=== PATIENT | female | born 1965 | race African-American/Black ===

== ENCOUNTER 2017-12-03 23:58 | Emergency (ER) | payer OTHER ==
[~2017-12-03] VITALS: Ht 167.6 cm; Wt 89.8 kg
[~2017-12-03 23:58] MED LIST: KENALOG 0.1% CR15 GM APPLIC; NKM; PREDNISONE20 MG ORAL
[2017-12-04] MEDS ORDERED: LISINOPRIL20 MG ORAL (00:08)
[2017-12-04] MEDS ORDERED: ATORVASTATIN CA20 MG ORAL (00:08)
[2017-12-04 00:45] VITALS: BP 148/88
[2017-12-04 00:59] LABS: APPEARANCE,URINE CLEAR; BILIRUBIN, URINE NEGATIVE (NEGATIVE); COLOR,URINE PALE YELLOW; GLUCOSE, URINE (UA) NEGATIVE (NEGATIVE); KETONES,URINE NEGATIVE (NEGATIVE); LEUKOCYTE ESTERASE ,URINE 1+ (NEGATIVE); NITRITE,URINE NEGATIVE (NEGATIVE); PH,URINE 6.5 (4.5-8.0); PROTEIN,URINE NEGATIVE (NEGATIVE); UROBILINOGEN,URINE 1 MG/DL (0.0-1.0)
[2017-12-04] MEDS ORDERED: BACTRIM DS TAB1 EAC1 ORAL (01:22)
--- NOTE | 2017-12-04 01:22 | Emergency Room Report ---
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 She "holds" urine. She c/o feeling some discomfort and is concerned may have UTI. No fever, no abd pain no n/v. Has had occasional UTIs in the past. Allergies: Coded Allergies: No Known Allergies (Unverified , 05/23/15) Nursing Documentation-PMH Hx Cardiac Problems: Yes - HIGH CHOLESTEROL Hx Hypertension: Yes Review of Systems Constitutional: Denies: fever Eye: Denies: acuity changes Respiratory: Denies: cough, shortness of breath Cardiovascular: Denies: chest pain Gastrointestinal: Denies: nausea, vomiting Skin: Denies: rash Neurological: Denies: headache Physical Exam Vital Signs Date Time Temp Pulse Resp B/P (MAP) Pulse Ox O2 Delivery O2 Flow Rate FiO2 12/04/17 00:00 97.8 67 18 152/90 98 Room Air 97.9 General Appearance: well appearing, no apparent distress Head: normocephalic, atraumatic ENT: hearing grossly normal, normal voice Neck: full range of motion, supple Respiratory: no respiratory distress, speaking full sentences Musculoskeletal: no calf tenderness Neurologic: alert, normal gait Psychiatric: mood/affect normal Skin: no rash Medical Decision Making Diagnostic Impression: Primary Impression: Dysuria Additional Impression: UTI (urinary tract infection) ER Course no real UTI; I am giving Rx. for Bactrim for patient to have on prn basis i also informed of her product called "travelJohn" Last Vital Signs Date Time Temp Pulse Resp B/P (MAP) Pulse Ox O2 Delivery O2 Flow Rate FiO2 12/04/17 00:00 97.8 67 18 152/90 98 Room Air 97.9 Disposition: HOME, SELF-CARE Condition: Stable Scripts Trimethoprim/Sulfamethoxazole 160/800* (BACTRIM DS TABLET*) 1 Each Tablet 1 TAB ORAL Q12H, #14 TAB 0 Refills Prov: Nazario Nickerson M.D. 12/04/17 Referrals: [facility]ERR[facility] (PCP) Patient Instructions: Urinary Tract Infection Nazario Nickerson M.D. Dec 04, 2017 01:22
[2017-12-04 01:25] VITALS: BP 148/88
== END 2017-12-04 01:25 | disposition home or self-care (01) ==
LOC: EMR 12-04 00:19
DX: N39.0 Urinary tract infection, site not specified (principal); I10 Essential (primary) hypertension; E78.00 Pure hypercholesterolemia, unspecified
CPT/HCPCS: 81001; 99283

== ENCOUNTER 2018-01-25 18:40 | Emergency (ER) | payer OTHER ==
[~2018-01-25] VITALS: Ht 167.6 cm; Wt 81.6 kg
[~2018-01-25 18:40] MED LIST changes: +ATORVASTATIN CA20 MG ORAL; +BACTRIM DS TAB1 EAC1 ORAL; +LISINOPRIL20 MG ORAL
--- NOTE | 2018-01-25 19:08 | Emergency Room Report ---
History of Present Illness General Chief Complaint: Abdominal Pain Source: Patient Present Illness HPI 52yo F c/o 3 days of sharp, intense R flank and R low back an abdominal pain with associated dysuria. she denies fevers, chills, reports the pain is worse with moving, she reports taking OTC meds without relief. Allergies: Coded Allergies: No Known Allergies (Unverified , 05/23/15) Patient History Past Medical History: see triage record Reviewed Nursing Documentation: PMH: Agreed; PSxH: Agreed Nursing Documentation-PMH Past Medical History: No History, Except For Hx Cardiac Problems: Yes - HIGH CHOLESTEROL Hx Hypertension: Yes Review of Systems All Other Systems: negative except mentioned in HPI Physical Exam Vital Signs Date Time Temp Pulse Resp B/P (MAP) Pulse Ox O2 Delivery O2 Flow Rate FiO2 01/25/18 18:46 98.4 78 16 156/84 96 Room Air 98.4 Sp02 EP Interpretation: reviewed, normal General Appearance: no apparent distress, alert, non-toxic Head: normocephalic Eyes: bilateral eye normal inspection, bilateral eye PERRL, bilateral eye EOMI ENT: normal ENT inspection, hearing grossly normal, normal pharynx, no angioedema, normal voice, moist mucus membranes Neck: normal inspection, full range of motion, supple, supple/symm/no masses Respiratory: chest non-tender, lungs clear, normal breath sounds, chest symmetrical, palpation of chest normal Cardiovascular #1: normal peripheral pulses, regular rate, rhythm Cardiovascular #2: 2+ radial (R), 2+ radial (L), 2+ dorsalis pedis (R), 2+ dorsalis pedis (L) Gastrointestinal: normal inspection, non tender, soft, no mass, no guarding, no rebound Rectal: deferred Genitourinary: normal inspection, no CVA tenderness Musculoskeletal: back normal, gait/station normal, normal range of motion, non- tender, no calf tenderness, Aston's Sign negative Neurologic: alert, responsive, case management social worker III-XII nml as tested, motor strength/tone normal, sensory intact, speech normal Psychiatric: judgement/insight normal, memory normal, mood/affect normal, no suicidal/homicidal ideation Skin: normal color, no rash, warm/dry, normal turgor Lymphatic: no adenopathy Medical Decision Making Diagnostic Impression: Primary Impression: Back pain ER Course Patient with no evidence infection, no evidence of right-sided nephrolithiasis or liver, gallbladder, appendix disease on CT scan, labs or urinalysis., Patient will be discharged with muscle relaxants and anti-inflammatories. Do not suspect aortic disease. CT/MRI/US Diagnostic Results CT/MRI/US Diagnostic Results : Imaging Test Ordered: ct ab/pelvis Impression no acute dz; incidental L renal stone Last Vital Signs Date Time Temp Pulse Resp B/P (MAP) Pulse Ox O2 Delivery O2 Flow Rate FiO2 01/25/18 18:46 98.4 78 16 156/84 96 Room Air 98.4 Disposition: HOME, SELF-CARE Condition: Stable ELY MCARTHUR M.D Jan 25, 2018 19:08
[2018-01-25] MEDS ORDERED: Ketorolac 30mg Inj IV ONE (19:15)
[2018-01-25] MEDS ORDERED: Cyclobenzaprine 10mg Tab ORAL ONE (19:15)
[2018-01-25 19:42] LABS: APPEARANCE,URINE CLEAR; BILIRUBIN, URINE NEGATIVE (NEGATIVE); GLUCOSE, URINE (UA) NEGATIVE (NEGATIVE); KETONES,URINE 1+ (NEGATIVE); LEUKOCYTE ESTERASE ,URINE NEGATIVE (NEGATIVE); NITRITE,URINE NEGATIVE (NEGATIVE); PH,URINE 5 (4.5-8.0); PROTEIN,URINE NEGATIVE (NEGATIVE); UROBILINOGEN,URINE 1 MG/DL (0.0-1.0)
[2018-01-25 19:43] LABS: COLOR,URINE YELLOW
[2018-01-25 19:46] VITALS: BP 138/108
[2018-01-25 19:51] LABS: BASOPHILS % (AUTO) 0.7 % (0.0-2.0); EOSINOPHILS % (AUTO) 1.7 % (0.0-3.0); HEMOGLOBIN 13.2 G/DL (12.0-16.0); LYMPHOCYTES % (AUTO) 28.8 % (20.0-45.0); MEAN CORPUSCULAR VOLUME 91 FL (80-99); NEUTROPHILS % (AUTO) 62.8 % (45.0-75.0); PLATELET COUNT 239 K/UL (150-450); RED BLOOD COUNT 4.38 M/UL (4.20-5.40); RED CELL DISTRIBUTION WIDTH 12.5 % (11.6-14.8); WHITE BLOOD COUNT 12.4 K/UL (4.8-10.8)
[2018-01-25 20:05] LABS: ANION GAP 9 mmol/L (5-15); BLOOD UREA NITROGEN 21 mg/dL (7-18); CALCIUM 9.6 MG/DL (8.5-10.1); CARBON DIOXIDE 27 MMOL/L (21-32); CHLORIDE 104 MMOL/L (98-107); CREATININE 1.1 MG/DL (0.55-1.30); POTASSIUM 3.9 MMOL/L (3.5-5.1); SODIUM 140 MMOL/L (136-145)
[2018-01-25 20:10] LABS: ALANINE AMINOTRANSFERASE 18 U/L (12-78); ALBUMIN 3.9 G/DL (3.4-5.0); ALKALINE PHOSPHATASE 78 U/L (46-116); ASPARTATE AMINO TRANSFERASE 12 U/L (15-37); BILIRUBIN,TOTAL 0.4 MG/DL (0.2-1.0)
[2018-01-25] MEDS ORDERED: IBUPROFEN600 MG ORAL (21:08)
[2018-01-25] MEDS ORDERED: MEDROL4 M1 PO (21:08)
[2018-01-25] MEDS ORDERED: CYCLOBENZAPRINE10 MG ORAL (21:08)
[2018-01-25 21:31] VITALS: BP 148/83
[2018-01-25 21:32] VITALS: BP 138/108
--- NOTE | 2018-01-26 09:43 | Diagnostic Imaging Report ---
Indication: Abdominal pain Technique: Continuous helical transaxial imaging of the abdomen and pelvis was obtained from the lung bases to the pubic symphysis. No intravenous contrast was administered. Coronal 2-D reformats were also obtained. Automatic Exposure Control was utilized. Total Dose length Product (DLP): [address] Dose Index Volume (CTDIvol): 0.17, 0.05 mGy Comparison: none Findings: There are multiple nonobstructive stones in the left kidney measuring upwards of 8 mm. There is no hydronephrosis. The gallbladder is contracted. There is moderate calcification of the aorta. The appendix is normal. There is uterus is noted. There is no free fluid or free air identified. IMPRESSION: Nonobstructing calculi within the left kidney. Normal appendix. Other findings as above. [facility] has communicated the preliminary results to the Emergency Department. Their findings are largely concordant with this report. The CT scanner at [facility] is accredited by the [employer] and the scans are performed using dose optimization techniques as appropriate to a performed exam including Automatic Exposure control.
== END 2018-01-25 21:49 | disposition home or self-care (01) ==
LOC: EMR 19:05
DX: M54.5 Low back pain (principal); N20.0 Calculus of kidney; I10 Essential (primary) hypertension; E78.00 Pure hypercholesterolemia, unspecified
CPT/HCPCS: 36415; 74176; 80053; 81003; 83690; 85025; 96374; 99284; J1885; J8540